=== PATIENT | male | born 1965 | race Caucasian/White ===

== ENCOUNTER → 2018-07-13 | Outpatient (CLI) | payer OTHER ==
--- NOTE | 2018-07-13 15:35 | US ---
EXAMINATION TYPE: US venous doppler duplex LE LT DATE OF EXAM: 07/13/2018 3:20 PM COMPARISON: NONE CLINICAL HISTORY: R60.0 EDEMA. Left leg swelling x 8 days. Pt on blood thinners. SIDE PERFORMED: Left TECHNIQUE: The lower extremity deep venous system is examined utilizing real time linear array sonog karina with graded compression, doppler sonography and color-flow sonography. VESSELS IMAGED: External Iliac Vein (EIV) Common Femoral Vein Deep Femoral Vein Greater Saphenous Vein * Femoral Vein Popliteal Vein Small Saphenous Vein * Proximal Calf Veins (* superficial vessels) Left Leg: No evidence of DVT in the left lower extremity. Grayscale, color doppler, spectral doppler imaging performed of the deep veins of the left lower extr emity. There is normal flow, compressibility, vascular waveforms. IMPRESSION: No ultrasound evidence for acute DVT in the left lower extremity.
[2018-07-13 15:48] LABS: Basophils # (A) 0.1 k/uL (0-0.2); Basophils % (A) 1 %; Eosinophils # (A) 0.3 k/uL (0-0.7); Eosinophils % (A) 3 %; HCT 53.3 % (39.0-53.0); Lymphocytes # (A) 2.5 k/uL (1.0-4.8); Lymphocytes % (A) 20 %; MCH 31.1 pg (25.0-35.0); MCHC 33.8 g/dL (31.0-37.0); MCV 92.1 fL (80.0-100.0); Monocytes # (A) 0.7 k/uL (0-1.0); Monocytes % (A) 6 %; Neutrophils # (A) 8.6 k/uL (1.3-7.7); Neutrophils % (A) 69 %; Platelet Count 377 k/uL (150-450); RBC 5.79 m/uL (4.30-5.90); RDW 13.1 % (11.5-15.5); WBC 12.6 k/uL (3.8-10.6)
[2018-07-13 15:56] LABS: Albumin 2.9 g/dL (3.5-5.0); Potassium 4.2 mmol/L (3.5-5.1); Total Bilirubin 0.5 mg/dL (0.2-1.3); Total Protein 5.6 g/dL (6.3-8.2); Uric Acid 9.1 mg/dL (3.5-8.5)
--- NOTE | 2018-07-13 15:59 | XR ---
EXAMINATION TYPE: XR foot complete LT DATE OF EXAM: 07/13/2018 CLINICAL HISTORY: Left foot swelling for one week. TECHNIQUE: Frontal, lateral, and oblique images of the left foot are obtained. COMPARISON: None FINDINGS: There is no acute fracture/dislocation evident in the left foot. The joint spaces in the foot appear within normal limits. There is mild diffuse subcutaneous edema with more mild to moderate swelling in the forefoot region noted. IMPRESSION: As above.
[2018-07-13 17:25] LABS: Erythrocyte Sedimentation Rate 61 mm/hr (0-15)
== END | disposition home or self-care (01) ==
LOC: RADUSWWP 14:46
PROVIDERS: ATTEND Internal Medicine
DX: M79.89 Other specified soft tissue disorders (principal); R60.0 Localized edema; M79.672 Pain in left foot
CPT/HCPCS: 80053; 84550; 85025; 85652

== ENCOUNTER 2020-10-13 22:17 | Observation (INO) | payer OTHER ==
[2020-10-13] MEDS ORDERED: SODIUM CHLORIDE 0.9% 1,000 ML IV STA (22:49)
--- NOTE | 2020-10-13 22:53 | ED ---
Recheck HPI - General Chief Complaint: Recheck/Abnormal Lab/Rx Stated Complaint: Abn Labs Time Seen by Provider: 10/13/20 22:48 Source: patient, RN notes reviewed, old records reviewed Mode of arrival: wheelchair Limitations: no limitations - History of Present Illness Initial Comments: This is a 55-year-old male to the ER for evaluation patient presents today for evaluation regards to abnormal outpatient lab value testing. Patient was told he has elevated potassium level. Otherwise patient states he has no complaints presented feeling well, no nausea vomiting or diarrhea no recent change in medications. Patient does get pretty significant anxiety testing which is in watching his potassium and is hence why presents today. Patient was told po tassium is an outpatient low was 6.3. MD Complaint: abnormal lab (Elevated potassium) -: unknown Returns Today for: Called Because of Abnormal Lab/Test Symptoms Since Prior Visit: no new symptoms Context: other (none) Associated Symptoms: none Treatments Prior to Arrival: other (none) - Related Data Previous Rx's Medication Instructions Recorded Acetaminophen Tab [Tylenol] 650 mg PO Q6HR PRN #0 tab 12/29/14 Atorvastatin [Lipitor] 40 mg PO DAILY #30 tab 12/29/14 Clopidogrel [Plavix] 75 mg PO DAILY #30 tab 12/29/14 Folic Acid 1 mg PO DAILY@1200 #30 tab 12/29/14 Allergies Allergy/AdvReac Type Severity Reaction Status Date / Time No Known Allergies Allergy Verified 10/13/20 22:26 Review of Systems ROS Statement: Those systems with pertinent positive or pertinent negative responses have been documented in the HPI. ROS Other: All systems not noted in ROS Statement are negative. Past Medical History Past Medical History: CVA/TIA, Renal Disease Additional Past Medical History / Comment(s): [place] [employer] in 9th grade for about a year/glomerular nephritis History of Any Multi-Drug Resistant Organisms: None Reported Past Surgical History: Tonsillectomy Additional Past Surgical History / Comment(s): kidney biopsy Past Anesthesia/Blood Transfusion Reactions: No Reported Reaction Past Psychological History: No Psychological Hx Reported Smoking Status: Current every day smoker Past Alcohol Use History: Occasional Past Drug Use History: Marijuana - Past Family History Father Family Medical History: Myocardial Infarction ([place]) Additional Family Medical History / Comment(s): Also 3 uncles had [place] General Exam General appearance: alert, in no apparent distress Head exam: Present: atraumatic, normocephalic, normal inspection Eye exam: Present: normal appearance, PERRL, EOMI. Absent: scleral icterus, conjunctival injection, periorbital swelling ENT exam: Present: normal exam, mucous membranes moist Neck exam: Present: normal inspection. Absent: tenderness, meningismus, lymphadenopathy Respiratory exam: Present: normal lung sounds bilaterally. Absent: respiratory distress, wheezes, rales, rhonchi, stridor Cardiovascular Exam: Present: regular rate, normal rhythm, normal heart sounds. Absent: systolic murmur, diastolic murmur, rubs, gallop, clicks GI/Abdominal exam: Present: soft, normal bowel sounds. Absent: distended, tenderness, guarding, rebound, rigid Extremities exam: Present: normal inspection, full ROM, normal capillary refill. Absent: tenderness, pedal edema, joint swelling, calf tenderness Back exam: Present: normal inspection Neurological exam: Present: alert, oriented X3, CN II-XII intact Psychiatric exam: Present: normal affect, normal mood Skin exam: Present: warm, dry, intact, normal color. Absent: rash Course Vital Signs 10/13/20 22:23 Temperature 97.7 F Pulse Rate 110 H Respiratory 18 Rate Blood Pressure 134/78 O2 Sat by Pulse 97 Oximetry - Reevaluation(s) Reevaluation #1: 10/14/20 00:07 Medical record is reviewed Reevaluation #2: 10/14/20 00:07 Patient informed results and questions answered Reevaluation #3: 10/14/20 00:25 Patient informed of results and questions answered Reevaluation #4: 10/14/20 00:25 Patient is aware of need for admission, further nephrology evaluation and treatment of heart - Consultations Consultation #1: Spoke with nephrology her aware patient, spoke with Dr. Jay who agrees to admit the patient Medical Decision Making - Medical Decision Making 55 male to the ER for evaluation patient does have acute on chronic kidney disease with hyperkalemia today. Patient's potassium will be treated will be admitted for evaluation of possible continued evaluation for dialysis - Lab Data Result diagrams: 10/13/20 23:03 10/13/20 23:03 Lab Results 10/13/20 10/13/20 10/13/20 Range/Units 23:03 23:03 23:03 WBC 8.9 (3.8-10.6) k/uL RBC 4.93 (4.30-5.90) m/uL Hgb 15.8 (13.0-17.5) gm/dL Hct 46.2 (39.0-53.0) % MCV 93.6 (80.0-100.0) fL MCH 32.0 (25.0-35.0) pg MCHC 34.1 (31.0-37.0) g/dL RDW 14.7 (11.5-15.5) % Plt Count 356 (150-450) k/uL MPV 8.1 Neutrophils % 71 % Lymphocytes % 14 % Monocytes % 7 % Eosinophils % 4 % Basophils % 1 % Neutrophils # 6.3 (1.3-7.7) k/uL Lymphocytes # 1.2 (1.0-4.8) k/uL Monocytes # 0.6 (0-1.0) k/uL Eosinophils # 0.3 (0-0.7) k/uL Basophils # 0.1 (0-0.2) k/uL PT 9.6 (9.0-12.0) sec INR 0.9 (<1.2) APTT 25.1 (22.0-30.0) sec Sodium (137-145) mmol/L Potassium (3.5-5.1) mmol/L Chloride (98-107) mmol/L Carbon Dioxide (22-30) mmol/L Anion Gap mmol/L BUN (9-20) mg/dL Creatinine (0.66-1.25) mg/dL Est GFR (CKD-EPI)AfAm (>60 ml/min/1.73 sqM) Est GFR (CKD-EPI)NonAf (>60 ml/min/1.73 sqM) Glucose (74-99) mg/dL Calcium (8.4-10.2) mg/dL Phosphorus (2.5-4.5) mg/dL Magnesium (1.6-2.3) mg/dL Total Bilirubin (0.2-1.3) mg/dL AST (17-59) U/L ALT (4-49) U/L Alkaline Phosphatase (38-126) U/L Creatine Kinase (55-170) U/L Total Protein (6.3-8.2) g/dL Albumin (3.5-5.0) g/dL Urine Color Light Yellow Urine Appearance Clear (Clear) Urine pH 6.0 (5.0-8.0) Ur Specific Tilly 1.015 (1.001-1.035) Urine Protein 3+ H (Negative) Urine Glucose (UA) Negative (Negative) Urine Ketones Negative (Negative) Urine Blood Moderate H (Negative) Urine Nitrite Negative (Negative) Urine Bilirubin Negative (Negative) Urine Urobilinogen <2.0 (<2.0) mg/dL Ur Leukocyte Esterase Negative (Negative) Urine RBC <1 (0-5) /hpf Urine WBC <1 (0-5) /hpf Urine Mucus Rare H (None) /hpf 10/13/20 Range/Units 23:03 WBC (3.8-10.6) k/uL RBC (4.30-5.90) m/uL Hgb (13.0-17.5) gm/dL Hct (39.0-53.0) % MCV (80.0-100.0) fL MCH (25.0-35.0) pg MCHC (31.0-37.0) g/dL RDW (11.5-15.5) % Plt Count (150-450) k/uL MPV Neutrophils % % Lymphocytes % % Monocytes % % Eosinophils % % Basophils % % Neutrophils # (1.3-7.7) k/uL Lymphocytes # (1.0-4.8) k/uL Monocytes # (0-1.0) k/uL Eosinophils # (0-0.7) k/uL Basophils # (0-0.2) k/uL PT (9.0-12.0) sec INR (<1.2) APTT (22.0-30.0) sec Sodium 138 (137-145) mmol/L Potassium 6.2 H* (3.5-5.1) mmol/L Chloride 116 H (98-107) mmol/L Carbon Dioxide 13 L (22-30) mmol/L Anion Gap 9 mmol/L BUN 53 H (9-20) mg/dL Creatinine 1.94 H (0.66-1.25) mg/dL Est GFR (CKD-EPI)AfAm 44 (>60 ml/min/1.73 sqM) Est GFR (CKD-EPI)NonAf 38 (>60 ml/min/1.73 sqM) Glucose 116 H (74-99) mg/dL Calcium 10.0 (8.4-10.2) mg/dL Phosphorus 4.5 (2.5-4.5) mg/dL Magnesium 1.8 (1.6-2.3) mg/dL Total Bilirubin 0.3 (0.2-1.3) mg/dL AST 26 (17-59) U/L ALT 27 (4-49) U/L Alkaline Phosphatase 116 (38-126) U/L Creatine Kinase 276 H (55-170) U/L Total Protein 6.5 (6.3-8.2) g/dL Albumin 4.0 (3.5-5.0) g/dL Urine Color Urine Appearance (Clear) Urine pH (5.0-8.0) Ur Specific Tilly (1.001-1.035) Urine Protein (Negative) Urine Glucose (UA) (Negative) Urine Ketones (Negative) Urine Blood (Negative) Urine Nitrite (Negative) Urine Bilirubin (Negative) Urine Urobilinogen (<2.0) mg/dL Ur Leukocyte Esterase (Negative) Urine RBC (0-5) /hpf Urine WBC (0-5) /hpf Urine Mucus (None) /hpf - EKG Data -: EKG Interpreted by Me (EKG shows sinus tachycardia 110. 146 QRS 112 QTc 446) Critical Care Time Critical Care Time: Yes Total Critical Care Time: 31 Disposition Clinical Impression: Hyperkalemia, Acute renal failure, Chronic kidney disease Disposition: ADMITTED IP TO THIS [facility] Condition: Serious Is patient prescribed a controlled substance at d/c from ED?: No Referrals: Patricia Carter MD [Primary Care Provider] - 1-2 days
[2020-10-13 23:16] LABS: Basophils # (A) 0.1 k/uL (0-0.2); Basophils % (A) 1 %; Eosinophils # (A) 0.3 k/uL (0-0.7); Eosinophils % (A) 4 %; HCT 46.2 % (39.0-53.0); HGB 15.8 gm/dL (13.0-17.5); Lymphocytes # (A) 1.2 k/uL (1.0-4.8); Lymphocytes % (A) 14 %; MCHC 34.1 g/dL (31.0-37.0); MCV 93.6 fL (80.0-100.0); Mean Platelet Volume 8.1; Monocytes # (A) 0.6 k/uL (0-1.0); Monocytes % (A) 7 %; Neutrophils # (A) 6.3 k/uL (1.3-7.7); Neutrophils % (A) 71 %; Platelet Count 356 k/uL (150-450); RBC 4.93 m/uL (4.30-5.90); RDW 14.7 % (11.5-15.5); WBC 8.9 k/uL (3.8-10.6)
[2020-10-13 23:17] LABS: Appearance,Urine Clear (Clear); Bilirubin,Urine Negative (Negative); Blood,Urine Moderate (Negative); Color,Urine Light Yellow; Glucose,Urine (UA) Negative (Negative); Ketones,Urine Negative (Negative); Leukocyte Esterase,Urine Negative (Negative); Mucus,Urine Rare /hpf; Nitrite,Urine Negative (Negative); Protein,Urine 3+ (Negative); RBC,Urine <1 /hpf (0-5); Specific Gravity,Urine 1.015 (1.001-1.035); Urobilinogen,Urine <2.0 mg/dL (<2.0); WBC,Urine <1 /hpf (0-5)
[2020-10-14 00:06] LABS: INR 0.9 (<1.2); Magnesium 1.8 mg/dL (1.6-2.3); Partial Thromboplastin Time 25.1 sec (22.0-30.0); Phosphorus 4.5 mg/dL (2.5-4.5); Prothrombin Time 9.6 sec (9.0-12.0); Total Bilirubin 0.3 mg/dL (0.2-1.3); Total Protein 6.5 g/dL (6.3-8.2)
[2020-10-14 00:07] LABS: Potassium 6.2 mmol/L (3.5-5.1)
[2020-10-14] MEDS ORDERED: SODIUM BICARB 8.4% 50 ML SYR (1 MEQ/ML) IV STA ×2 (00:26)
[2020-10-14] MEDS ORDERED: DEXTROSE 50% SYRINGE 50 ML IVP STA (00:26)
[2020-10-14] MEDS ORDERED: SODIUM POLYSTYRENE SULFONATE 15 GM/60 ML BOTTLE PO STA (00:26)
[2020-10-14] MEDS ORDERED: INSULIN REGULAR 100 UNIT/ML VIAL (IV) IV ONE (00:26)
[2020-10-14] MEDS ORDERED: CALCIUM GLUCONATE 2 GM in SODIUM CHLORIDE 0.9% 100 ML IVPB ONE (00:27)
[2020-10-14] MEDS ORDERED: CALCIUM CHLORIDE 100 MG/ML 10 ML SYRINGE IVP STA (00:27)
[2020-10-14] MEDS ORDERED: DEXTROSE 5% IN WATER 1,000 ML with SODIUM BICARB (1 MEQ/ML) 150 ML IV SCH (00:45)
--- NOTE | 2020-10-14 01:03 | XR ---
EXAMINATION TYPE: XR chest 1V portable DATE OF EXAM: 10/14/2020 COMPARISON: 12/26/2014 HISTORY: Weakness TECHNIQUE: 2 views FINDINGS: Heart and mediastinum are normal. Lungs are clear. Diaphragm is normal. There are chest abbe ds. Bony thorax is intact. IMPRESSION: Normal chest. No adverse change.
[2020-10-14] MEDS ORDERED: NALOXONE 0.4 MG/ML 1 ML VIAL IV PRN (02:11)
[2020-10-14 02:27] LABS: Glucose,Whole Blood 93 mg/dL (75-99)
[2020-10-14 04:18] LABS: Calcium 11.2 mg/dL (8.4-10.2); Potassium 5.3 mmol/L (3.5-5.1)
--- NOTE | 2020-10-14 10:24 | US ---
EXAMINATION TYPE: US kidneys/renal and bladder DATE OF EXAM: 10/14/2020 COMPARISON: NONE CLINICAL HISTORY: RF. Patient stated has Stage 4 renal disease. EXAM MEASUREMENTS: Right Kidney: 14.6 x 7.7 x 7.2 cm Left Kidney: 13.2 x 5.9 x 6.7 cm Post Void Residual Volume: not assessed on inpatient Right Kidney: No hydronephrosis or masses seen Left Kidney: No hydronephrosis or masses seen; small crescent shaped area seen mid extracapsular spac e suggests sonographic "sweat sign" for renal failure. Bladder: wnl Bilateral Jets seen: yes Cortical medullary junction is maintained. IMPRESSION: No acute process.
[2020-10-14] MEDS ORDERED: allopurinoL 300 MG TAB PO SCH (11:00)
[2020-10-14] MEDS ORDERED: FERROUS SULFATE 325 MG TAB PO SCH (11:00)
[2020-10-14] MEDS ORDERED: NICOTINE 14MG/24HR PATCH TRANSDERM SCH (11:00)
[2020-10-14] MEDS ORDERED: ERGOCALCIFEROL 1,250 MCG (50,000 IU) CAPSULE PO SCH (11:00)
[2020-10-14] MEDS ORDERED: MAGNESIUM OXIDE 400 MG TAB PO SCH (11:00)
[2020-10-14] MEDS ORDERED: BACLOFEN 10 MG TAB PO SCH (11:00)
[2020-10-14] MEDS ORDERED: lisinopriL 20 MG TAB PO SCH (11:00)
[2020-10-14] MEDS ORDERED: CALCIUM ACETATE 667 MG TAB PO SCH (12:30)
[2020-10-14] MEDS ORDERED: SODIUM BICARBONATE TAB 650 MG TAB PO SCH (14:00)
--- NOTE | 2020-10-14 14:09 | P.HPIM ---
History of Present Illness H&P Date: 10/14/20 Lucho Manriquez, is a 55 year old male who presented to [facility] emergency room with a chief complaint of abnormal lab with hyperkalemia, patient has a known history of chronic kidney disease and gets repeated lab testing to assess for hyperkalemia, his recent blood tests revealed a potassium of 6.3 and was contacted and told to go to emergency room, otherwise he denies any complaints there is no fever or chills no headache or dizziness no chest pain no shortness of breath no cough no nausea or vomiting no abdominal pain no diarrhea no blood in the stools no burning with urination no frequency or urgency and no hematuria no weakness or numbness in any of the extremities no change in vision speech or gait. He was evaluated in the emergency room vital examination on presentation revealed a temperature of 97.7 pulse 110 respiration 18 blood pressure 134/78 pulse ox 97% on room air Laboratory data reveals a white blood count of 8.9 hemoglobin 15.8 platelet count 356 sodium 138 potassium 6.2 chloride 116 CO2 13 BUN 53 creatinine 1.94 glucose level was 116 Testing in the emergency room revealed EKG revealed sinus tachycardia with right bundle branch block and left posterior fascicular block, abdomen ultrasound was ordered and results are still pending Patient was admitted to medical floor for further evaluation and treatment. Past medical history is significant for history of chronic kidney disease, history of TIA, history of Sanders's palsy, Past Medical History Past Medical History: CVA/TIA, Renal Disease Additional Past Medical History / Comment(s): [place] [employer] in 9th grade for about a year/glomerular nephritis History of Any Multi-Drug Resistant Organisms: None Reported Past Surgical History: Tonsillectomy Additional Past Surgical History / Comment(s): kidney biopsy Past Anesthesia/Blood Transfusion Reactions: No Reported Reaction Past Psychological History: No Psychological Hx Reported Smoking Status: Current every day smoker Past Alcohol Use History: Occasional Past Drug Use History: Marijuana - Past Family History Father Family Medical History: Myocardial Infarction ([place]) Additional Family Medical History / Comment(s): Also 3 uncles had [place] Medications and Allergies Home Medications Medication Instructions Recorded Confirmed Type Allopurinol [Zyloprim] 300 mg PO DAILY 10/14/20 10/14/20 History Baclofen [Lioresal] 10 mg PO TID 10/14/20 10/14/20 History Calcium Acetate [Phoslo] 667 mg PO TID-W/MEALS 10/14/20 10/14/20 History Ergocalciferol [Vitamin D2 (1250 1,250 mcg PO TUTHSA 10/14/20 10/14/20 History Mcg = 48029 Iu)] Ferrous Sulfate [Feosol] 325 mg PO DAILY 10/14/20 10/14/20 History Magnesium Oxide [Mag-Ox] 400 mg PO BID 10/14/20 10/14/20 History Nicotine 14Mg/24Hr Patch [Habitrol] 1 patch TRANSDERM DAILY patch 10/14/20 Rx Simvastatin [Zocor] 20 mg PO HS 10/14/20 10/14/20 History Sodium Bicarbonate Tab 650 mg PO DAILY tab 10/14/20 Rx Sodium Polystyrene Sulf Powder 15 gram PO TH 10/14/20 10/14/20 History carvediloL [Coreg] 3.125 mg PO BID-W/MEALS tab 10/14/20 Rx lisinopriL [Zestril] 10 mg PO DAILY tab 10/14/20 Rx Allergies Allergy/AdvReac Type Severity Reaction Status Date / Time No Known Allergies Allergy Verified 10/14/20 07:30 Physical Exam Vitals: Vital Signs Temp Pulse Resp BP Pulse Ox 10/14/20 09:38 97.5 F L 92 18 123/65 96 10/14/20 08:05 98 10/14/20 04:03 77 17 133/82 99 10/13/20 22:23 97.7 F 110 H 18 134/78 97 Intake and Output 10/13/20 10/14/20 10/14/20 22:59 06:59 14:59 Other: Weight 99.79 kg In general patient is alert and oriented x 3 in no distress HEENT head normocephalic and atraumatic Neck is supple no JVD no goiter no lymphadenopathy no carotid bruit Chest examination is clear to auscultation no crackles no wheezing Cardiac exam reveals regular heart sounds S1 and S2 no gallops no murmurs Abdomen is soft nontender no organomegaly with normal bowel sounds Extremity exam reveals no edema no cyanosis or clubbing Neurological examination reveals no gross focal deficits Results CBC & Chem 7: 10/13/20 23:03 10/14/20 03:40 Labs: Abnormal Lab Results - Last 24 Hours (Table) 10/13/20 10/13/20 10/14/20 Range/Units 23:03 23:03 03:40 Sodium 136 L (137-145) mmol/L Potassium 6.2 H* 5.3 H (3.5-5.1) mmol/L Chloride 116 H 112 H (98-107) mmol/L Carbon Dioxide 13 L 17 L (22-30) mmol/L BUN 53 H 49 H (9-20) mg/dL Creatinine 1.94 H 1.83 H (0.66-1.25) mg/dL Glucose 116 H 101 H (74-99) mg/dL Calcium 11.2 H (8.4-10.2) mg/dL Creatine Kinase 276 H (55-170) U/L Urine Protein 3+ H (Negative) Urine Blood Moderate H (Negative) Urine Mucus Rare H (None) /hpf Assessment and Plan Plan: 1. Hyperkalemia 2. Acute on chronic kidney disease 3. Acute metabolic acidosis 4. Tobacco use, patient counseled to quit 5. History of Sanders's palsy 6. Underlying history of hypertension 7. Underlying history of hyperlipidemia 8. Underlying history of gout 9. Previous history of TIA At this time patient will be admitted to medical floor, patient was started on IV sodium bicarb drip Home medications reviewed and reordered Kidney ultrasound ordered to rule out any obstruction contributing to renal failure Nephrology consultation requested Will follow closely
[2020-10-14 14:11] VITALS: RESP 18
--- NOTE | 2020-10-14 14:18 | P.DS ---
Providers Date of admission: 10/14/20 02:13 Expected date of discharge: 10/14/20 Attending physician: Sreekanth Jay Consults: 10/14/20 02:12 Consult Physician Routine Consulting Provider: Jennifer Hickman Consult Reason/Comments: hyperK Do you want consulting provider notified?: Yes Primary care physician: Patricia Carter [facility] Course: Diagnosis on discharge: 1. Hyperkalemia 2. Acute on chronic kidney disease 3. Acute metabolic acidosis 4. Tobacco use, patient counseled to quit 5. History of Sanders's palsy 6. Underlying history of hypertension 7. Underlying history of hyperlipidemia 8. Underlying history of gout 9. Previous history of TIA Hospital course: Lucho Manriquez, is a 55 year old male who presented to [facility] emergency room with a chief complaint of abnormal lab with hyperkalemia, patient has a known history of chronic kidney disease and gets repeated lab testing to assess for hyperkalemia, his recent blood tests revealed a potassium of 6.3 and was contacted and told to go to emergency room, otherwise he denies any complaints there is no fever or chills no headache or dizziness no chest pain no shortness of breath no cough no nausea or vomiting no abdominal pain no diarrhea no blood in the stools no burning with urination no frequency or urgency and no hematuria no weakness or numbness in any of the extremities no change in vision speech or gait. He was evaluated in the emergency room vital examination on presentation revealed a temperature of 97.7 pulse 110 respiration 18 blood pressure 134/78 pulse ox 97% on room air Laboratory data reveals a white blood count of 8.9 hemoglobin 15.8 platelet count 356 sodium 138 potassium 6.2 chloride 116 CO2 13 BUN 53 creatinine 1.94 glucose level was 116 Testing in the emergency room revealed EKG revealed sinus tachycardia with right bundle branch block and left posterior fascicular block, abdomen ultrasound was ordered and results are still pending Patient was admitted to medical floor for further evaluation and treatment. Past medical history is significant for history of chronic kidney disease, history of TIA, history of Sanders's palsy, On 10/14/2020 Patient was seen and examined on the medical floor, he is alert and oriented x 3 in no distress, he denies any complaints there is no fever or chills no headache or dizziness no chest pain no shortness of breath no palpitation no cough no nausea or vomiting no abdominal pain no diarrhea no blood in the stools no burning with urination no frequency or urgency and no hematuria, there is no weakness or numbness in any of the extremities no change in vision speech or gait. Kidney ultrasound was done and did not reveal any acute abnormality, case was discussed was Dr. Hickman over the phone and at this time, will decrease lisinopril dose from 40 mg daily to 10 mg daily. We will add Coreg 3.125 mg twice daily, will add sodium bicarb 650 mg 1 by mouth daily. Patient was cleared for discharge he was instructed to have a repeat blood test in 2-3 days and follow-up with his primary care physician and his shank carrier. Patient is a smoker, he was counseled to quit smoking counseling more than 5 minutes during this admission, he was given a nicotine patch during this admission he was also given a prescription for the same at the time of discharge. Patient Condition at Discharge: Serious Plan - Discharge Summary New Discharge Prescriptions: New carvediloL [Coreg] 3.125 mg PO BID-W/MEALS tab lisinopriL [Zestril] 10 mg PO DAILY tab Nicotine 14Mg/24Hr Patch [Habitrol] 1 patch TRANSDERM DAILY patch Sodium Bicarbonate Tab 650 mg PO DAILY tab Continue Sodium Polystyrene Sulf Powder 15 gram PO TH Ergocalciferol [Vitamin D2 (1250 Mcg = 30716 Iu)] 1,250 mcg PO TUTHSA Magnesium Oxide [Mag-Ox] 400 mg PO BID Ferrous Sulfate [Iron (65 MG Elemental)] 325 mg PO DAILY Baclofen [Lioresal] 10 mg PO TID Allopurinol [Zyloprim] 300 mg PO DAILY Simvastatin [Zocor] 20 mg PO HS Calcium Acetate [PhosLo] 667 mg PO TID-W/MEALS Discontinued lisinopriL 40 mg PO DAILY Discharge Medication List Allopurinol [Zyloprim] 300 mg PO DAILY 10/14/20 [History] Baclofen [Lioresal] 10 mg PO TID 10/14/20 [History] Calcium Acetate [PhosLo] 667 mg PO TID-W/MEALS 10/14/20 [History] Ergocalciferol [Vitamin D2 (1250 Mcg = 21336 Iu)] 1,250 mcg PO TUTHSA 10/14/20 [History] Ferrous Sulfate [Iron (65 MG Elemental)] 325 mg PO DAILY 10/14/20 [History] Magnesium Oxide [Mag-Ox] 400 mg PO BID 10/14/20 [History] Nicotine 14Mg/24Hr Patch [Habitrol] 1 patch TRANSDERM DAILY patch 10/14/20 [Rx] Simvastatin [Zocor] 20 mg PO HS 10/14/20 [History] Sodium Bicarbonate Tab 650 mg PO DAILY tab 10/14/20 [Rx] Sodium Polystyrene Sulf Powder 15 gram PO TH 10/14/20 [History] carvediloL [Coreg] 3.125 mg PO BID-W/MEALS tab 10/14/20 [Rx] lisinopriL [Zestril] 10 mg PO DAILY tab 10/14/20 [Rx] Follow up Appointment(s)/Referral(s): Patricia Carter MD [Primary Care Provider] - 1-2 days
[2020-10-14 15:39] VITALS: BP 119/76; PULSE 90; TEMP 97.6
[2020-10-14] MEDS ORDERED: carvediloL 3.125 MG TAB PO SCH (17:30)
--- NOTE | 2020-10-14 19:57 | CONS ---
CONSULTATION REASON FOR CONSULT: Hyperkalemia. HISTORY OF PRESENT ILLNESS: The patient is a 55-year-old male with history of chronic kidney disease, NKF stage 3 with baseline creatinine around 1-1.3 mg/dL. Patient has history of membranous glomerulopathy, status post treatment with Cytoxan and steroids. He has an underlying history of chronic hyperkalemia and patient was supposed to be maintained on Kayexalate once a week. He was noted to have a high potassium of 6.3 mEq/L in the lab as outpatient and was therefore advised to come into the hospital. CO2 was noted to be significantly low at 13 upon admission and the patient is currently maintained on IV bicarb. He denied any significant diarrhea at home, although he has had on and off episodes of diarrhea. The patient admitted to increased intake of potassium foods prior to admission. He denied use of any nonsteroidal anti-inflammatory agents. PAST MEDICAL HISTORY: Chronic GN, membranous nephropathy, status post Ponticelli regimen, history of CVA/TIA, history of Sanders's palsy. PAST SURGICAL HISTORY: Tonsillectomy, kidney biopsy. SOCIAL HISTORY: Patient is a current daily smoker. History of marijuana use. MEDICATIONS: Medications prior to admission included zyloprim, baclofen, PhosLo iron, Mag-Ox, Zocor, sodium bicarb, Coreg, Zestril. ALLERGIES: None. PHYSICAL EXAMINATION: Patient is comfortable, awake, not in any acute distress. Alert, oriented x3. Blood pressure is 144/87, heart rate 84 per minute, he is afebrile. Examination of the heart S1, S2. Examination of the lungs, bilateral breath sounds are heard. Abdomen is soft, nontender. Examination of lower extremities shows no evidence of edema. [employer] exam grossly intact. LAB: Show from this morning sodium 136, potassium 5.3, chloride 112, CO2 17, BUN 49, creatinine 1.83, calcium was 11.2. ASSESSMENT: 1. Acute kidney injury, possibly prerenal with the patient having had episodes of diarrhea, slightly better post IV fluid administration. The patient is advised to maintain adequate fluid intake post discharge. He wants to go home today as he has an appointment for insurance purposes tomorrow morning. 2. Hyperkalemia associated with acute kidney injury and metabolic acidosis, currently improved. The patient is maintained on Kayexalate at home on a routine basis. He is advised to avoid high potassium containing foods and he may need to increase the Kayexalate to twice a week. The hyperkalemia may also improve with correction of metabolic acidosis and at the same time I will decrease the losartan to 10 mg daily. 3. Hypertension. Decrease losartan. May need to hold if patient remains hyperkalemic. 4. History of membranous nephropathy status post Ponticelli regimen a few years ago. 5. Hypercalcemia noted on current labs, although calcium was 10.0 a few hours earlier. I am not sure if this is accurate. This will be repeated again as outpatient. 6. Metabolic acidosis secondary to renal failure and diarrhea, maintained on IV bicarb. Will maintain patient on oral sodium bicarb upon discharge. PLAN: Okay to discharge with close followup as outpatient. Repeat labs in 2-3 days. Decrease dose of lisinopril to 10 mg daily, continue with Kayexalate, avoid high potassium containing foods and maintain adequate fluid intake. Thank you for this consultation. MMODL / IJN: [id number] /
[2020-10-14] MEDS ORDERED: ATORVASTATIN 10 MG TAB PO SCH (21:00)
[2020-10-15] MEDS ORDERED: lisinopriL 10 MG TAB PO SCH (09:00)
== END 2020-10-14 15:43 | disposition home or self-care (01) ==
LOC: EC 22:17 → 3SCARD 10-14 02:13 → INTOOBSV 10-14 02:13 → 3SCARD 10-14 14:22 → UNDODISIN 10-14 15:43
PROVIDERS: ADMIT Internal Medicine; ATTEND Internal Medicine
DX: N17.9 Acute kidney failure, unspecified (principal); E87.2 Acidosis; Z79.02 Long term (current) use of antithrombotics/antiplatelets; F17.200 Nicotine dependence, unspecified, uncomplicated; N18.30 Chronic kidney disease, stage 3 unspecified; I12.9 Hypertensive chronic kidney disease with stage 1 through stage 4 chronic kidney disease, or unspecified chronic kidney disease; Z86.73 Personal history of transient ischemic attack (TIA), and cerebral infarction without residual deficits; E78.5 Hyperlipidemia, unspecified; M10.9 Gout, unspecified; E83.52 Hypercalcemia; Z79.899 Other long term (current) drug therapy; G51.0 Bell's palsy
CPT/HCPCS: 99285; 96361 ×2; 96365; 96366; 96375; 36415; 93005; 80053; 80048; 82550; 83735; 84100; 85025; 85610; 85730; 81001; 71045; 76770; G0378; S4990; J0610; 96374; 99291